=== PATIENT | male | born 1985 | race Caucasian/White ===

== ENCOUNTER 2016-11-27 13:14 | Emergency (ER) | payer SELFPAY ==
--- NOTE | 2016-12-08 17:46 | ER ---
ADMIT: 11/27/2016 RM/LOC: ER [facility] MR#: [id number] [address] [id number] [place] [address] Emergency Room Report SEX: M AGE: 31 : 1985 DATE: 11/27/2016 ADDENDUM: This patient comes into the ER because he is having severe dental pain. He knows he needs to have his teeth pulled and he has an appointment on 12/01; however, he just cannot stand the pain. He is currently taking amoxicillin. On physical exam, he has widespread dental decay. He does have some swelling and pain in the right lower jaw area and there is some swelling of the face as well. No signs of abscess to be drained. I had switched his antibiotic to clindamycin. I did a right inferior alveolar nerve block, which gave him instant relief. I also wrote a prescription for tramadol. He is to discontinue the amoxicillin and start taking the clindamycin. Please see my T- sheet. ROHAN Arechiga / Santino Eaton MD / ana cristina JOB #: [id number] CC: Santino Eaton MD, Attending Physician Jarod Herrera MD, Family Physician
== END 2016-11-27 14:30 | disposition home or self-care (01) ==
LOC: ER 13:14
DX: K02.9 Dental caries, unspecified (principal); Z79.899 Other long term (current) drug therapy; F17.210 Nicotine dependence, cigarettes, uncomplicated